=== PATIENT | male | born 1960 | race Caucasian/White ===

== ENCOUNTER 2018-08-18 17:53 | Emergency (ER) | payer OTHER ==
[2018-08-18 18:33] LABS: Hemoglobin 14.7 g/dL (14.0-18.0); Mean Corpuscular HGB CONC 33.5 g/dL (32.0-36.0); Mean Corpuscular Hemoglobin 30.4 pg (27.0-31.0); Mean Corpuscular Volume 90.5 fL (78.0-98.0); Platelet Count 275 thou/uL (130-400); Red Blood Cell (RBC) Count 4.86 mill/uL (4.70-6.10); White Blood Cell (WBC) Count 9.9 thou/uL (4.8-10.8)
--- NOTE | 2018-08-18 18:37 | RAD ---
TWO VIEWS CHEST: Comparison: 07-29-02 History: Intermittent chest pain. FINDINGS: Two views of the chest shows a normal sized cardiomediastinal silhouette. There is stable elevation o f the right hemidiaphragm. There is no evidence of consolidation, mass, or pleural effusion. IMPRESSION: No evidence of acute cardiopulmonary disease. POS: [facility]
[2018-08-18 18:53] LABS: ALT (SGPT) 23 U/L (8-55); AST (SGOT) 17 U/L (5-34); Alkaline Phosphatase 54 U/L (40-150); Anion Gap 15 mmol/L (10-20); BUN (Urea Nitrogen) 13 mg/dL (8.4-25.7); Bilirubin, Total 0.8 mg/dL (0.2-1.2); CK (CPK) 72 U/L (30-200); Calc. Creatinine Clearance 0 mL/min (70-130); Calcium 9.3 mg/dL (7.8-10.44); Carbon Dioxide 26 mmol/L (22-29); Chloride 97 mmol/L (98-107); Estimated GFR-MDRD 70; Globulin 3.1 g/dL (2.4-3.5); Glucose 97 mg/dL (70-105); Potassium 4.3 mmol/L (3.5-5.1); Protein, Total 7.1 g/dL (6.0-8.3); Sodium 134 mmol/L (136-145)
[2018-08-18 18:55] LABS: Band 14 % (5-11); Eosinophils 2 % (0-10); Lymphocytes 10 % (21-51); MDiff Complete? YES; Monocytes 13 % (0-10); Neutrophil 59 % (42-75); Reactive Lymphocytes 2 % (0-10)
== END 2018-08-18 23:55 | disposition home or self-care (01) ==
LOC: ERS 17:53
DX: R07.89 Other chest pain (principal); M10.9 Gout, unspecified; I10 Essential (primary) hypertension; F32.9 Major depressive disorder, single episode, unspecified; Z87.891 Personal history of nicotine dependence; Z79.899 Other long term (current) drug therapy
CPT/HCPCS: 36415; 71046; 80053; 82550; 84484; 85025; 93005

== ENCOUNTER 2018-09-06 08:41 | Emergency (ER) | payer OTHER ==
[2018-09-06] MEDS ORDERED: Adacel (T-DAP) 0.5 ML SYRINGE ONE (09:02)
[2018-09-06] MEDS ORDERED: Ketorolac Tromethamine 30 MG/ML VIAL ONE (09:02)
[2018-09-06] MEDS ORDERED: Bacitracin 1 PK ONE (09:02)
--- NOTE | 2018-09-06 09:43 | RAD ---
RIGHT HAND 3 VIEWS: Date: 09/06/18 HISTORY: Right hand pain, fall, swelling of right hand. FINDINGS/IMPRESSION: There is an angulated fracture involving the neck of the fourth metacarpal. POS: [facility]
== END 2018-09-06 09:38 | disposition home or self-care (01) ==
LOC: ERS 08:41
DX: S62.364A Nondisplaced fracture of neck of fourth metacarpal bone, right hand, initial encounter for closed fracture (principal); M10.9 Gout, unspecified; I10 Essential (primary) hypertension; F32.9 Major depressive disorder, single episode, unspecified; Z87.891 Personal history of nicotine dependence; Z79.899 Other long term (current) drug therapy; W01.0XXA Fall on same level from slipping, tripping and stumbling without subsequent striking against object, initial encounter
CPT/HCPCS: 26600; 90471; 90715; 96372; J1885